=== PATIENT | male | born 1995 | race Caucasian/White ===

== ENCOUNTER 2018-01-13 17:41 | Emergency (ER) | payer OTHER ==
[~2018-01-13] VITALS: Ht 175.3 cm; Wt 74.4 kg
[2018-01-13 18:07] VITALS: Ht 175.3 cm; Wt 74.4 kg
[2018-01-13 18:54] VITALS: BP 136/71
== END 2018-01-13 18:54 | disposition home or self-care (01) ==
LOC: ED 17:41
DX: J06.9 Acute upper respiratory infection, unspecified (principal); H11.32 Conjunctival hemorrhage, left eye